=== PATIENT | female | born 1975 | race Two or more races ===

== ENCOUNTER 2018-06-10 20:51 | Emergency (ER) | payer SELFPAY ==
[~2018-06-10] VITALS: Ht 152.4 cm; Wt 48.9 kg
[2018-06-10 20:59] VITALS: BP 146/85
== END 2018-06-10 23:14 | disposition home or self-care (01) ==
LOC: ED 21:24
DX: S83.91XA Sprain of unspecified site of right knee, initial encounter (principal); S50.02XA Contusion of left elbow, initial encounter; S60.212A Contusion of left wrist, initial encounter; F17.200 Nicotine dependence, unspecified, uncomplicated; V09.9XXA Pedestrian injured in unspecified transport accident, initial encounter; Y93.89 Activity, other specified; Y92.89 Other specified places as the place of occurrence of the external cause; Y99.8 Other external cause status
CPT/HCPCS: 99283

== ENCOUNTER 2018-07-27 05:17 | Observation (INO) | payer OTHER ==
[~2018-07-27] VITALS: Ht 152.4 cm; Wt 52.5 kg
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
--- NOTE | 2018-07-27 05:25 | NUR ---
DR CROFT AT BEDSIDE. PT STATES "LOOKING FOR AN EASY AND PAILESS WAY OF KILLING MYSELF. USING A GUN WOULD BE TOO MESSY" PT DENIES ACCESS TO A GUN. "NO ONE WILL GIVE ME ONE. PT COOPERATIVE WITH BREATHALYZER.
--- NOTE | 2018-07-27 05:50 | NUR ---
PT REFUSING BLOOD DRAW AND PROVIDING URINE SPECIMAN. AGAIN WAS EXPLAINED TO PT REASONS FOR TESTING. "ONLY GOD KNOWS IF THERE IS AN INFECTION"
--- NOTE | 2018-07-27 06:02 | NUR ---
LATE ENTRY FOR 0517: PT MADE STATEMENT OF USING "WIRES (FROM MONITORING EQUIPEMENT WHILE DOORS WERE UP) TO STRANGLE MYSELF" PT WAS NOTIFIED THAT AFTER V/S COMPLETED, DOORS WOULD BE SHUT AND SHE WOULD NOT HAVE ACCESS TO THE EQUIPMENT.
--- NOTE | 2018-07-27 06:59 | NUR ---
REPORT TO ZAN MARTIN
--- NOTE | 2018-07-27 07:45 | NUR ---
Lab at bedside. Pt refusing lab draw or urine sample. Pt states, "All I need is love and kindness. What does lab work have to do with me being suicidal. I am disgusted with how you all treat people here. I am fucking mad. I am not doing anything." Pt requesting food. Pt refusing to do any requested blood draw or urine samples. Pt speaks aggressively toward ED staff. Pt is AOX4, has unlabored respirations equal bilaterally, has steady gait and balance standing at bedside. No other needs requested at this time. SI food tray ordered for pt for breakfast.
--- NOTE | 2018-07-27 07:54 | NUR ---
Provided SI food tray per pt request. Prior statments at 0740 were, "So you are with holding food from me unless I do what you want?". Pt educated that food trays were ordered and on their way and when they came would be brought to her. Pt stated appreciation.
--- NOTE | 2018-07-27 08:59 | NUR ---
Pt ate 100% of SI breakfast tray. Pt sleeping on [facility]. Sitter near doorway in direct line of sight for obseration. NADN. No needs expressed at this time.
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
[2018-07-27 11:19] LABS: BASOPHILS # (AUTO) 0.02 x10^3/uL (0-0.1); BASOPHILS % (AUTO) 0 % (0-1); EOSINOPHILS # (AUTO) 0.08 x10^3/uL (0-0.4); EOSINOPHILS % (AUTO) 1 % (1-7); LYMPHOCYTES # (AUTO) 2.19 x10^3/uL (1-3.4); LYMPHOCYTES % (AUTO) 33 % (22-44); MD NO; MEAN CORPUSCULAR HEMOGLOBIN 30.1 pg (27.0-34.8); MEAN CORPUSCULAR HGB CONC 33.3 g/dL (32.4-35.8); MEAN CORPUSCULAR VOLUME 90.4 fL (80-100); MEAN PLATELET VOLUME 8.1 fL (7.4-10.4); MONOCYTES # (AUTO) 0.49 x10^3/uL (0.2-0.8); MONOCYTES % (AUTO) 8 % (2-9); NEUTROPHILS # (AUTO) 3.76 x10^3/uL (1.8-6.8); NEUTROPHILS % (AUTO) 58 % (42-75); PLATELET COUNT 286 x10^3/uL (130-400); RED BLOOD COUNT 4.64 x10^6/uL (3.82-5.3); RED CELL DISTRIBUTION WIDTH 13.3 % (9.6-15.2)
[2018-07-27 11:32] LABS: ANION GAP 6 mmol/L (5-15); CALCIUM 8.7 mg/dL (8.5-10.1); CHLORIDE 111 mmol/L (98-107); CREATININE 0.75 mg/dL (0.55-1.02)
[2018-07-27 11:33] LABS: SALICYLATE LEVEL < 1.7 mg/dL (2.8-20.0)
[2018-07-27 11:34] LABS: ACETAMINOPHEN < 2 mcg/mL (10-30)
--- NOTE | 2018-07-27 13:10 | NUR ---
LATE NOTE ENTRY FOR 1200: Pt provided lunch tray. Pt resting on gurney. Pt ate 100% of lunch tray. NADN. No needs expressed at this time.
--- NOTE | 2018-07-27 13:11 | NUR ---
LATE NOTE ENTRY FOR 1100: Pt resting on gurney asleep. NADN. No needs expressed at this time. All SI precautions in place. Sitter near doorway in direct line of sight for observation.
--- NOTE | 2018-07-27 13:12 | NUR ---
Returned from lunch break. Recieved report from task RN. All questions answered. Telepsych consult attempted to occur. Pt non-compliant in answering telepsych MD questions. EDMD aware. Pt standing in doorway talking to sitter. NADN. No needs expressed at this time.
[2018-07-27] MEDS ORDERED: ZIPRASIDONE 20 MG INJ IM ONE ×2 (13:20→13:30)
--- NOTE | 2018-07-27 13:27 | NUR ---
Security called at bedside. Pt yelling in gasca threatening to leave. Pt arguing with other pt's in hallway. Pt threatening to kill herself, "you make me want to kill myself. I am suing Venkates[employer], I am here over a fucking cup of water." Pt leaves room and attempts to hold self in restroom. Restroom door open. Pt urinated in ED halway. Halway cleaned by temporary staff accountant. Provied IM medication per EMAR and EDMD order. Security at bedside. Pt continuing to yell and scream, "I fucking hate you, you're holding me against my will."
--- NOTE | 2018-07-27 13:48 | NUR ---
Pt resting on [facility] with eyes closed. NADN. Sitter near doorway in direct line of sight for observation. No needs expressed at this time.
--- NOTE | 2018-07-27 14:50 | NUR ---
THROUGHPUT RN: PACKET FAXED TO [facility].
--- NOTE | 2018-07-27 15:49 | NUR ---
LATE NOTE ENTRY FOR 1430: Pt resting on gurney asleep. NADN. Pt has unlabored respirations equal bilaterally. Sitter near doorway in direct line of sight of pt. No needs expressed at this time.
--- NOTE | 2018-07-27 15:49 | NUR ---
Pt sleeping on [facility]. MARCELA. Pt has unlabored respirations equal bilaterally with chest rise and fall equal bilaterally. Sitter near doorway in direct line of sight for observation.
--- NOTE | 2018-07-27 17:30 | NUR ---
Pt awake and stating, "I want to leave." NADN. Sitter near doorway in direct line of sight.
[2018-07-27] MEDS ORDERED: BENZTROPINE 1 MG TABLET PO PRN (18:00)
[2018-07-27] MEDS: NICOTINE 21 MG/24 HR PATCH.TD24 TD SCH (18:00)
--- NOTE | 2018-07-27 18:07 | NUR ---
TASK RN: PT PROVIDED W/ SI DINNER TRAY.
--- NOTE | 2018-07-27 18:11 | NUR ---
Offered pt nicotine patch. Pt declined. Pt poliet and cooperative with RN at this time. Pt asking, "How long until I can get my kids back?" EDRN empathetically discussed plan of care with pt. Pt stated understanding and appreciation. Pt requested over head lighting turned off and the TV turned on, ED RN assisted with these requests. Hospital bed requested from housekeeping. Pt aware. No needs requested at this time. NADN. Sitter near doorway in direct line of sight for observation.
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
[2018-07-27] MEDS ORDERED: LORazepam 2 MG/ML, 1ML ONE (18:57)
--- NOTE | 2018-07-27 18:57 | NUR ---
Provided bedside report to MARIO Moreno. Pt agitated and threatening to "bash my head in and leave. I am suicidal, I have been my whole life, but I am not going to off myself." All questions answered. Mattie assuming care of pt at this time.
[2018-07-27] MEDS: LORazepam 2 MG/ML, 1ML IM PRN ×2 (19:01→20:01)
--- NOTE | 2018-07-27 19:11 | NUR ---
PT IN ROOM YELLING, RIPPED CURTAIN DOWN FROM HANGERS. PACING ROOM
--- NOTE | 2018-07-27 20:01 | NUR ---
PT RESTING ON GURNEY WITH EYES CLOSED, APPEARS TO BE SLEEPING. RESPIRATIONS EVEN AND UNLABORED. SITTER OUTSIDE DOOR. ROOM REMAINS SECURE.
--- NOTE | 2018-07-27 21:54 | NUR ---
PT RESTING QUIETLY ON GURNEY, SITTER OUTSIDE DOOR MONITORING PT. ROOM REMAINS SECURE. WILL CONTINUE TO MONITOR.
--- NOTE | 2018-07-28 00:28 | NUR ---
PT CONTINUES TO SLEEP. SITTER OUTSIDE DOOR MONITORING PT. ROOM REMAINS SECURE.
--- NOTE | 2018-07-28 01:53 | NUR ---
PT SLEEPING. SITTER OUTSIDE DOOR, MONITORING PT. ROOM REMAINS SECURE. WILL CONTINUE TO MONITOR.
--- NOTE | 2018-07-28 03:51 | NUR ---
PT SLEEPING. SITTER OUTSIDE DOOR MONITORING PT. ROOM REMAINS SECURE, WILL CONTINUE TO MONITOR.
--- NOTE | 2018-07-28 03:56 | NUR ---
MEAL TRAY ORDERED FOR BREAKFAST
--- NOTE | 2018-07-28 07:27 | NUR ---
REC BBS REPORT PT RESTING WAITING ON A MEAL
--- NOTE | 2018-07-28 09:48 | NUR ---
THROUGHPUT RN: SPOKE W/ JOLIE FROM [facility] WHO STATES SHE WILL PUT A CALL OUT AND WILL CALL BACK W/ DIANE.
--- NOTE | 2018-07-28 10:02 | NUR ---
THROUGHPUT RN: SPOKE AGAIN W/ JOLIE FROM [facility] WHO STATES PT WAS RELEASED FROM [facility] AT 0450 AND IMMEDIATELY TRANSPORTED TO [facility] ED. NO NEED FOR PT TO GO BACK TO [facility]. ALSO SPOKE W/ OZZY WHO STATES THEY WILL ACCEPT PT W/O UA.
--- NOTE | 2018-07-28 10:08 | NUR ---
PT PROVIDED URINE SPECIMAN, SENT TO LAB. PT AWAKE, WALKING IN ROOM. PT CONT IN SECURE ROOM WITH SITTER AT DOOR.
--- NOTE | 2018-07-28 10:13 | NUR ---
HOSPITAL BED PLACED IN ROOM FOR PT COMFORT. MEAL TRAY RE-ORDERED FROM DIETARY.
[2018-07-28 10:37] LABS: AMPHETAMINE SCREEN, URINE Positive (Negative); BARBITURATE SCREEN, URINE Negative (Negative); BENZODIAZEPINE SCREEN, URINE Negative (Negative); CANNABINOID SCREEN, URINE Positive (Negative); COCAINE SCREEN, URINE Negative (Negative); METHADONE SCREEN, URINE Negative (Negative); OPIATE SCREEN, URINE Negative (Negative)
[2018-07-28 11:13] VITALS: BP 111/75
[2018-07-28] MEDS: HALOPERIDOL 5 MG TABLET PO PRN (13:09)
[2018-07-28 20:00] VITALS: BP 99/64
[2018-07-29 07:55] VITALS: BP 110/74
[2018-07-29] MEDS: NICOTINE 21 MG/24 HR PATCH.TD24 TD SCH (08:00)
[2018-07-29] MEDS: HALOPERIDOL 5 MG TABLET PO PRN (16:23)
[2018-07-29 16:35] VITALS: BP 111/73
[2018-07-29] MEDS: LORazepam 2 MG/ML, 1ML IM PRN (17:12)
[2018-07-29 19:49] VITALS: BP 94/66
[2018-07-30] MEDS: NICOTINE 21 MG/24 HR PATCH.TD24 TD SCH (08:00)
[2018-07-30 08:36] VITALS: BP 105/67
[2018-07-30 19:28] VITALS: BP 105/69
[2018-07-31 08:00] VITALS: BP 120/80
[2018-07-31] MEDS: NICOTINE 21 MG/24 HR PATCH.TD24 TD SCH (08:00)
[2018-07-31 19:07] VITALS: BP 112/78
[2018-08-01] MEDS ORDERED: NICOTINE 21 MG/24 HR PATCH.TD24 TD SCH ×2 (01:30→21:00)
[2018-08-01 07:17] VITALS: BP 131/80
[2018-08-01 19:52] VITALS: BP 113/73
[2018-08-01] MEDS: ACETAMINOPHEN 325 MG TABLET PO PRN (20:06)
[2018-08-02 02:50] VITALS: BP 121/80
[2018-08-02] MEDS: ACETAMINOPHEN 325 MG TABLET PO PRN (03:28)
[2018-08-02] MEDS ORDERED: ONDANSETRON ODT 4 MG PO PRN (03:30)
[2018-08-02 07:54] VITALS: BP 112/70
[2018-08-02 19:36] VITALS: BP 103/70
[2018-08-02] MEDS: NICOTINE 7 MG/24 HR PATCH.TD24 TD SCH (21:00)
[2018-08-02] MEDS: OLANZAPINE 10 MG TABLET PO SCH (21:24)
[2018-08-02] MEDS ORDERED: HALOPERIDOL 5 MG/ML IM PRN (21:30)
[2018-08-02] MEDS ORDERED: OLANZAPINE 5 MG TABLET PO PRN (22:00)
[2018-08-03 08:01] VITALS: BP 98/66
[2018-08-03] MEDS: OLANZAPINE 10 MG TABLET PO SCH (20:26)
[2018-08-03 20:35] VITALS: BP 111/75
[2018-08-03] MEDS: NICOTINE 7 MG/24 HR PATCH.TD24 TD SCH (21:00)
[2018-08-04 08:15] VITALS: BP 97/60
== END 2018-08-04 11:50 | disposition left against medical advice (07) ==
LOC: ED 06:00 → EDIP 17:02 → SUATTDRO 17:07 → 2N 07-28 11:05
PROVIDERS: ADMIT Internal Medicine; ATTEND Internal Medicine
DX: R45.851 Suicidal ideations (principal); F12.20 Cannabis dependence, uncomplicated; F31.2 Bipolar disorder, current episode manic severe with psychotic features; F43.10 Post-traumatic stress disorder, unspecified; F43.24 Adjustment disorder with disturbance of conduct; Z87.891 Personal history of nicotine dependence; Z79.899 Other long term (current) drug therapy
CPT/HCPCS: 36415; 80048; 80307; 80329; 82040; 82962; 84703; 85025; 96372; 99284; G0378; J2060; J3486; Q0162; G0480